=== PATIENT | female | born 1980 | race Caucasian/White ===

== ENCOUNTER 2022-04-03 11:11 | Day surgery (SDC) | payer BC ==
[2022-04-02 09:10] VITALS: BMI 35.9
[2022-04-03] MEDS ORDERED: Gabapentin 300 MG CAP ONE (11:36)
[2022-04-03] MEDS ORDERED: Famotidine/PF 20 mg/2ml Vial ONE (11:37)
[2022-04-03] MEDS ORDERED: CeleCOXIB 100 MG CAP ONE (11:38)
[2022-04-03] MEDS ORDERED: Rocuronium Bromide 10 MG/ML (10ML VIAL) ONE (12:31)
[2022-04-03] MEDS ORDERED: Lidocaine 1% PF 5 ML VIAL ONE (12:31)
[2022-04-03] MEDS ORDERED: PROPOFOL 20 ML ONE (12:31)
[2022-04-03] MEDS ORDERED: EPINEPHrine 1 MG/ML AMP ONE (13:04)
[2022-04-03] MEDS ORDERED: Bupivacaine PF 0.5% 30 ML VIAL ONE (13:04)
[2022-04-03] MEDS ORDERED: CEFAZOLIN 2 GM VIAL ONE (13:18)
[2022-04-03] MEDS ORDERED: Promethazine HCl 25 MG/ML VIAL ONE (13:20)
[2022-04-03] MEDS ORDERED: Fentanyl 100 MCG/2 ML VIAL ONE ×2 (13:21→15:42)
[2022-04-03] MEDS ORDERED: HYDROmorphone 0.5 MG/0.5 ML SYRINGE ONE (13:21)
[2022-04-03] MEDS ORDERED: PHENYLEPHRINE-NS 100 MCG/ML 10 ML SYRINGE ONE (14:10)
[2022-04-03] MEDS ORDERED: Glycopyrrolate 0.2 MG/ML 5 ML SYRINGE ONE (14:55)
[2022-04-03] MEDS ORDERED: Promethazine HCl 25 MG/ML VIAL IM PRN (15:10)
[2022-04-03] MEDS ORDERED: HYDROcodone/Acetaminophen 5/325 mg Tablet PO PRN ×2 (15:10)
[2022-04-03] MEDS ORDERED: Ondansetron PF 4 MG/2 ML Vial IVP PRN (15:10)
[2022-04-03] MEDS ORDERED: Fentanyl 100 MCG/2 ML VIAL SLOW IVP PRN (15:10)
[2022-04-03] MEDS ORDERED: Simethicone Chewable 80 MG TAB PO PRN (15:10)
[2022-04-03] MEDS ORDERED: Zolpidem Tartrate 5 MG TAB PO PRN (15:10)
[2022-04-03] MEDS ORDERED: traMADol HCl 50 MG TAB PO PRN (15:10)
[2022-04-03] MEDS ORDERED: diphenhydrAMINE 25 MG CAP PO PRN (15:10)
[2022-04-03] MEDS ORDERED: Bisacodyl 10 MG SUPP PR PRN (15:10)
[2022-04-03] MEDS ORDERED: ALPRAZolam 1 MG TAB PO PRN (15:17)
[2022-04-03] MEDS ORDERED: ALBUTEROL SULFATE INH SCH (15:30)
[2022-04-03] MEDS: Sodium Chloride 0.9% 1,000 ML IV SCH ×2 (17:06→23:18)
[2022-04-03] MEDS: Ketorolac Tromethamine 30 MG/ML VIAL IVP SCH (17:32)
[2022-04-03] MEDS ORDERED: Loratadine 10 MG TAB PO PRN (17:58)
[2022-04-04] MEDS: Ketorolac Tromethamine 30 MG/ML VIAL IVP SCH (00:05)
[2022-04-04] MEDS: Sodium Chloride 0.9% 1,000 ML IV SCH (00:15)
[2022-04-04 05:07] LABS: Hemoglobin 11.4 g/dL (12.0-15.5); Mean Corpuscular HGB CONC 34.7 g/dL (32.0-36.0); Mean Corpuscular Hemoglobin 31.4 pg (27.0-33.0); Mean Corpuscular Volume 90.6 fl (81.6-98.3); Mean Platelet Volume 9.2 fl (7.4-10.4); Platelet Count 216 10x3/uL (150-450); RBC Distribution Width 13.8 % (11.5-14.5); Red Blood Cell (RBC) Count 3.63 10x6/uL (3.90-5.03); White Blood Cell (WBC) Count 10.4 10x3/uL (3.5-10.5)
[2022-04-04] MEDS ORDERED: Ibuprofen 600 MG TAB PO SCH (06:00)
[2022-04-04 07:42] VITALS: BP 119/60; TEMP 97.3
[2022-04-04] MEDS ORDERED: FLUOXETINE HCL 40 MG PO SCH ×2 (09:00→10:45)
[2022-04-04] MEDS ORDERED: ALBUTEROL SULFATE INH SCH (10:45)
== END 2022-04-04 10:45 | disposition home or self-care (01) ==
LOC: CSHSDC 11:11 → CSHPED 16:45 → UNDOADMIN 16:45 → UNDODISIN 04-04 10:45 → CSHSDC 04-04 10:45
PROVIDERS: ATTEND Obstetrics & Gynecology
PROC: 0UT64ZZ Resection of Left Fallopian Tube, Percutaneous Endoscopic Approach (ICD-10-PCS; principal; 2022-04-03)
PROC: 0UT94ZZ Resection of Uterus, Percutaneous Endoscopic Approach (ICD-10-PCS; principal; 2022-04-03)
PROC: 0UT04ZZ Resection of Right Ovary, Percutaneous Endoscopic Approach (ICD-10-PCS; principal; 2022-04-03)
DX: N73.6 Female pelvic peritoneal adhesions (postinfective) (principal); Z85.3 Personal history of malignant neoplasm of breast; J45.909 Unspecified asthma, uncomplicated; F41.9 Anxiety disorder, unspecified; F32.A Depression, unspecified; Z79.899 Other long term (current) drug therapy; Z90.721 Acquired absence of ovaries, unilateral
CPT/HCPCS: 84703; 85027; 86850; 86900; 86901; 88307; C1776; J0171; J1170; J1885; J2550; J2704; J3010; J7050; S0020; S0028

== ENCOUNTER 2022-04-15 03:42 | Emergency (ER) | payer BC ==
[2022-04-15] MEDS ORDERED: Acetaminophen 500 MG TAB ONE (04:39)
[2022-04-15] MEDS ORDERED: Ondansetron PF 4 MG/2 ML Vial ONE (04:39)
[2022-04-15 04:52] LABS: #Monocytes 0.4 10x3/uL (0.0-1.1); #Neutrophils 7.6 10x3/uL (1.5-8.4); %Basophils 0.2 % (0.0-2.0); %Eosinophils 0.2 % (0.0-6.0); %Lymphocytes 1.9 % (18.0-47.0); %Monocytes 4.4 % (0.0-10.0); %Neutrophils 92.4 % (40.0-75.0); Hemoglobin 11.3 g/dL (12.0-15.5); Mean Corpuscular HGB CONC 34.8 g/dL (32.0-36.0); Mean Corpuscular Hemoglobin 31.7 pg (27.0-33.0); Mean Corpuscular Volume 91.3 fl (81.6-98.3); Mean Platelet Volume 9.1 fl (7.4-10.4); Platelet Count 211 10x3/uL (150-450); RBC Distribution Width 13.6 % (11.5-14.5); Red Blood Cell (RBC) Count 3.56 10x6/uL (3.90-5.03); White Blood Cell (WBC) Count 8.2 10x3/uL (3.5-10.5)
[2022-04-15 05:00] LABS: ALT (SGPT) 27 U/L (8-55); AST (SGOT) 27 U/L (5-34); Albumin 3.7 g/dL (3.5-5.0); Alkaline Phosphatase 95 U/L (40-110); Anion Gap 12 mmol/L (10-20); BUN (Urea Nitrogen) 12 mg/dL (7.0-18.7); Bilirubin, Total 0.4 mg/dL (0.2-1.2); Calc. Creatinine Clearance 0 mL/min (70-130); Calcium 8.6 mg/dL (7.8-10.44); Carbon Dioxide 19 mmol/L (22-29); Chloride 105 mmol/L (98-107); Estimated GFR 97; Globulin 3.1 g/dL (2.4-3.5); Glucose 132 mg/dL (70-105); Lipase 20 U/L (8-78); Potassium 3.8 mmol/L (3.5-5.1); Protein, Total 6.8 g/dL (6.0-8.3); Sodium 132 mmol/L (136-145)
[2022-04-15 05:07] LABS: SARS-CoV-2 NAA Rapid Test Not Detected (NotDetected)
[2022-04-15 05:35] LABS: Bilirubin Neg (Negative); Blood, Urine 50 (Negative); Clarity Slightly Cloudy (Clear); Glucose, Urine (Dipstick) Normal (Negative); Ketone, Urine Negative (Negative); Leukocyte 500 (Negative); Nitrite Negative (Negative); Protein, Urine (Dipstick) 15 mg/dl (Neg-Trace); Specific Gravity, Urine 1.005 (1.005-1.030); Urobilinogen Normal mg/dL (Less than 2)
[2022-04-15 05:44] LABS: RBC/HPF 0-3 HPF (0-3)
[2022-04-15 05:45] LABS: Bacteria/HPF 1+ HPF (None Seen)
[2022-04-15] MEDS ORDERED: Ketorolac Tromethamine 30 MG/ML VIAL ONE (05:50)
[2022-04-15] MEDS ORDERED: cefTRIAXone\\ROCEPHIN 1 GM VIAL ONE ×2 (05:50→05:54)
[2022-04-15] MEDS ORDERED: Iopamidol 300 61% 100 ML VIAL FS ONE (09:35)
== END 2022-04-15 07:57 | disposition home or self-care (01) ==
LOC: CSHERS 03:42
DX: N30.00 Acute cystitis without hematuria (principal); J45.909 Unspecified asthma, uncomplicated; Z20.822 Contact with and (suspected) exposure to COVID-19; Z79.899 Other long term (current) drug therapy
CPT/HCPCS: 36415; 71045; 74177; 80053; 81003; 81015; 83605; 83690; 85025; 87040; 87077; 87086; 87149; 87186; 96361; 96365; 96366; 96375; J0696; J1885; J2405; Q9967

== ENCOUNTER 2024-02-14 13:46 | Outpatient (CLI) | payer BC | END 2024-02-14 13:47 | disposition home or self-care (01) | LOC: CSHMAMMO 13:46 | PROVIDERS: ATTEND Internal Medicine Hematology & Oncology | DX: Z08 Encounter for follow-up examination after completed treatment for malignant neoplasm (principal); M85.88 Other specified disorders of bone density and structure, other site; T38.6X5A Adverse effect of antigonadotrophins, antiestrogens, antiandrogens, not elsewhere classified, initial encounter; Z79.811 Long term (current) use of aromatase inhibitors; Z85.3 Personal history of malignant neoplasm of breast; Z85.89 Personal history of malignant neoplasm of other organs and systems | CPT/HCPCS: 77066; 77080; G0279 ==

== ENCOUNTER 2025-04-06 08:39 | Outpatient (CLI) | payer BC | END 2025-04-06 08:40 | disposition home or self-care (01) | LOC: CSHDTY/OP 08:39 | PROVIDERS: ATTEND Nurse Practitioner Family | DX: Z71.3 Dietary counseling and surveillance (principal) | CPT/HCPCS: 97802 ==